=== PATIENT | female | born 1975 | race Caucasian/White ===

== ENCOUNTER 2024-05-03 14:15 | Emergency (ER) | payer OTHER, SELFPAY ==
[2024-05-03] VITALS (8 sets, daily range): BP systolic 117–133; BP diastolic 67–78; PULSE 77–95; RESP 18–20; TEMP 36.9–37; O2SAT 95–98; BMI 18.8
--- NOTE | 2024-05-03 14:35 | ED_ITS ---
HPI - Allergic Reaction General Chief complaint: Allergic Reaction Stated complaint: Throat is closing Time Seen by Provider: 05/03/24 14:23 Source: patient Mode of arrival: Ambulatory History of Present Illness HPI narrative: Patient is a 49-year-old female who is here for evaluation of what she initially describes as feeling like her throat was closing. She states that approximately 5-6 hours ago she started noticing that her throat felt somewhat weird. Stated that full like there was something in her throat. She took a half of a Benadryl tablet. She was not have any problems breathing. She does have history of COPD it did take some of her inhaler because of some wheezing but that seems to have resolved and yet she still has the throat symptoms. No fevers. She states that she went to a and during the was trying to eat something. She stated that it was difficult/painful for her to swallow. She was tolerating secretions. She did take another half of the Benadryl tablet. No skin rashes. Related Data Previous Rx's Medication Instructions Recorded pantoprazole 40 mg tablet,delayed 40 mg PO BID #60 tabs 06/28/16 release sucralfate 100 mg/mL oral 10 ml PO QACHS PRN Painful 05/03/24 suspension (Carafate) swallowing #414 mL Allergies Allergy/AdvReac Type Severity Reaction Status Date / Time acetaminophen [From VICODIN] Allergy Unknown Verified 05/03/24 14:43 esomeprazole [From NEXIUM] Allergy Unknown Verified 05/03/24 14:43 hydrocodone [From VICODIN] Allergy Unknown Verified 05/03/24 14:43 tramadol [TRAMADOL] Allergy Unknown Verified 05/03/24 14:43 Review of Systems Review of Systems Narrative: See HPI Patient History Social History Smoking Status: Current every day smoker Smoking Status: Current every day smoker tobacco type: cigarettes Substance Use Type: does not use Exam Initial Vital Signs Initial Vital Signs: Vital Signs Pulse Rate 92 H 05/03/24 14:21 Pulse Oximetry 96 05/03/24 14:21 Const General: cooperative, comfortable and No ill appearing HENMT Head: normal to inspection and normocephalic Mouth: oral mucosae normal, lip normal, tongue normal, oropharynx normal and moist mucous membranes Throat: uvula midline Neck Thyroid: thyroid normal Lymphatic: No lymphadenopathy Resp Effort & Inspection: normal respiratory effort Auscultation: clear to auscultation bilaterally Cardio Rate: regular rate Rhythm: regular rhythm Skin General: no rashes or lesions noted Course Orders Ordered: ED Orders 05/03/24 14:20 Complete Blood Count AUTO DIFF Stat Comprehensive Metabolic Panel Stat Lipase Stat 05/03/24 15:14 XR soft tissue neck Stat Discontinued Medications Diphenhydramine HCl (Diphenhydramine 50 Mg/Ml Vial) 25 mg IV NOW ONE Stop: 05/03/24 14:36 Last Admin: 05/03/24 14:44 Dose: 25 mg Documented By: RB Methylprednisolone (Methylprednisolone 125 Mg/2 Ml Vial) 125 mg IV NOW ONE Stop: 05/03/24 14:36 Last Admin: 05/03/24 14:44 Dose: 125 mg Documented By: RB Vital Signs Vital signs: Vital Signs - 8 hr 05/03/24 14:21 05/03/24 14:22 05/03/24 14:29 Temperature 98.6 F Pulse Rate 92 H 95 H 89 Respiratory Rate 20 Blood Pressure 133/78 Pulse Oximetry 96 96 95 Oxygen Delivery Method Room Air 05/03/24 14:30 05/03/24 14:30 05/03/24 15:00 Temperature Pulse Rate 90 77 Respiratory Rate Blood Pressure 123/70 Pulse Oximetry 95 97 Oxygen Delivery Method 05/03/24 15:00 05/03/24 15:30 Temperature Pulse Rate 77 Respiratory Rate Blood Pressure 117/72 Pulse Oximetry 97 Oxygen Delivery Method MDM - Allergic Reaction Lab Data Attestation: I reviewed the patient's lab results. 05/03/24 14:20 05/03/24 14:20 Labs: Lab Results 05/03/24 Range/Units 14:20 WBC 8.5 (4.5-11.0) X10^3/uL RBC 4.93 (4.0-5.2) X10^6/uL Hgb 14.2 (12.0-16.0) g/dL Hct 42.2 (36-46) % MCV 85.5 (80-100) fL MCH 28.8 (26-34) PG MCHC 33.6 (30-36) % RDW 14.6 (11.6-14.8) % Plt Count 325 (150-400) X10^3/uL Neut % (Auto) 70.6 (50-75) % Lymph % (Auto) 14.3 L (25-40) % Mitchell % (Auto) 6.7 (3-14) % Eos % (Auto) 6.1 H (2-4) % Baso % (Auto) 2.3 H (0-2) % Neut # (Auto) 6000 (6243-0415) /uL Lymph # (Auto) 1200 (3930-2900) /uL Mitchell # (Auto) 600 (0-900) /uL Eos # (Auto) 500 H (0-450) /uL Baso # (Auto) 200 H (0-100) /uL Sodium 137 (137-145) mmol/L Potassium 4.0 (3.4-5.1) mmol/L Chloride 108 H (98-107) mmol/L Carbon Dioxide 23 (22-32) mmol/L BUN 10 (7-17) mg/dL Creatinine 0.56 (0.52-1.04) mg/dL Estimated GFR > 60 (>60) mL/min BUN/Creatinine Ratio 17.9 (6-22) Glucose 110 H (70-100) mg/dL Calcium 8.5 (8.4-10.2) mg/dL Total Bilirubin 0.4 (0.2-1.3) mg/dL AST 32 (14-36) IU/L ALT 22 (<35) IU/L Alkaline Phosphatase 102 (38-126) U/L Total Protein 6.8 (6.3-8.2) g/dL Albumin 4.0 (3.5-5.0) g/dL Globulin 2.8 (1.7-4.1) g/dL Albumin/Globulin Ratio 1.4 (1.0-2.8) Lipase 254 (23-300) U/L Imaging Data soft tissue neck: Radiologist's Impression: PROCEDURE: XR SOFT TISSUE NECK INDICATIONS: fullness in throat with painful swallowing TECHNIQUE: 2 views of the neck were acquired. COMPARISON: None. FINDINGS: Airway: The airway appears patent. Soft tissues: Prevertebral soft tissues are normal in thickness. The epiglottis and aryepiglottic folds appear normal. No soft tissue gas. Bones: No suspicious bony lesions. Visualized cervical spine is normally aligned. Focal disc space narrowing can be seen at C5-C6. 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 IMPRESSION: No lauro soft tissue abnormality is seen to explain the patient's presenting symptoms. Please consider follow-up barium swallow versus soft tissue protocol neck CT for further evaluation. MDM Narrative Medical decision making narrative: No respiratory distress. No skin changes. Lungs are clear. Not hypoxic. No objective findings on the exam. Soft tissue neck is unremarkable. He was given Benadryl. Was tolerating oral intake. Not convinced that this was a allergic reaction. Potentially GI related complaint. Will place her on Carafate to sooth the esophagus. She continue to take Benadryl as needed. She was given return precautions. She expressed understanding and agreement. Discharge Plan Departure Patient Disposition: Home Clinical Impression: Pain with swallowing Activity Restrictions/Additional Instructions: You can continue to take Benadryl if needed if you feel like it is helping your symptoms. A prescription for medicine called Carafate was sent to [facility]. Please take it as directed. Return to the emergency department for new symptoms. Prescriptions: New sucralfate [Carafate] 100 mg/mL suspension 10 ml PO QACHS PRN (Reason: Painful swallowing) Qty: 414 0RF No Action pantoprazole 40 MG tablet,delayed release (DR/EC) 40 mg PO BID Qty: 60 2RF Referrals: Daniel Kelly MD [Primary Care Provider] - Stand Alone Forms: Patient Portal/API
[2024-05-03 14:44] LABS: Add Manual Diff / Slide Review NO; Basophils Absolute Auto 200 /uL (0-100); Basophils Percent Auto 2.3 % (0-2); Eosinophils Absolute Auto 500 /uL (0-450); Eosinophils Percent Auto 6.1 % (2-4); Hematocrit 42.2 % (36-46); Hemoglobin 14.2 g/dL (12.0-16.0); Lymphocytes Absolute Auto 1200 /uL (1100-4500); Lymphocytes Percent Auto 14.3 % (25-40); Mean Corpuscular HGB Conc 33.6 % (30-36); Mean Corpuscular Hemoglobin 28.8 PG (26-34); Mean Corpuscular Volume 85.5 fL (80-100); Monocytes Absolute Auto 600 /uL (0-900); Monocytes Percent Auto 6.7 % (3-14); Neutrophils Absolute Auto 6000 /uL (1500-7000); Neutrophils Percent Auto 70.6 % (50-75); Platelet Count 325 X10^3/uL (150-400); Red Blood Cell Count 4.93 X10^6/uL (4.0-5.2); Red Cell Distribution Width 14.6 % (11.6-14.8); White Blood Cell Count 8.5 X10^3/uL (4.5-11.0)
[2024-05-03] MEDS: diphenhydrAMINE 50 MG/ML VIAL 25 MG IV (14:44)
[2024-05-03] MEDS: methylPREDNISolone 125 MG/2 ML VIAL IV (14:44)
[2024-05-03 14:48] LABS: Lipase 254 U/L (23-300)
[2024-05-03 14:49] LABS: Alanine Aminotransferase 22 IU/L (<35); Albumin Globulin Ratio 1.4 (1.0-2.8); Alkaline Phosphatase 102 U/L (38-126); Aspartate Aminotransferase 32 IU/L (14-36); BUN Creatinine Ratio 17.9 (6-22); Bilirubin Total 0.4 mg/dL (0.2-1.3); Blood Urea Nitrogen 10 mg/dL (7-17); Calcium 8.5 mg/dL (8.4-10.2); Carbon Dioxide 23 mmol/L (22-32); Chloride 108 mmol/L (98-107); Estimated Glomerular Filt Rate > 60 mL/min (>60); Globulin 2.8 g/dL (1.7-4.1); Glucose 110 mg/dL (70-100); HEMOLYSIS < 15 (0-50); Sodium 137 mmol/L (137-145); Total Protein 6.8 g/dL (6.3-8.2)
--- NOTE | 2024-05-03 15:14 | DI.RAD.S_ITS ---
PROCEDURE: XR SOFT TISSUE NECK INDICATIONS: fullness in throat with painful swallowing TECHNIQUE: 2 views of the neck were acquired. COMPARISON: None. FINDINGS: Airway: The airway appears patent. Soft tissues: Prevertebral soft tissues are normal in thickness. The epiglottis and aryepiglottic folds appear normal. No soft tissue gas. Bones: No suspicious bony lesions. Visualized cervical spine is normally aligned. Focal disc space narrowing can be seen at C5-C6. 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 IMPRESSION: No lauro soft tissue abnormality is seen to explain the patient's presenting symptoms. Please consider follow-up barium swallow versus soft tissue protocol neck CT for further evaluation. Dictated by: Eusebio Galvez M.D. on 05/03/2024 at 14:40 Approved by: Eusebio Galvez M.D. on 05/03/2024 at 14:41
== END 2024-05-03 16:32 | disposition home or self-care (01) ==
PROVIDERS: Emergency Provider Emergency Medicine; Family Provider Family Medicine; PCP Family Medicine
DX: R13.10 Dysphagia, unspecified (principal); R07.0 Pain in throat
CPT/HCPCS: 36415; 70360; 80053; 83690; 85025; 96374; 96375; 99284; J1200; J2919